=== PATIENT | male | born 1980 | race Asian ===

== ENCOUNTER 2019-08-03 10:00 | Emergency (ER) | payer BC ==
[~2019-08-03] VITALS: Ht 172.7 cm; Wt 78.0 kg
[2019-08-03] MEDS ORDERED: IPRATROPIUM/ALBUTEROL 0.5-3(2.5)MG/3ML NEB HHN ONE (12:00)
[2019-08-03] MEDS ORDERED: ALBUTEROL (0.5%) 2.5MG/0.5ML NEB HHN ONE (12:00)
[2019-08-03 13:51] VITALS: BP 142/97
== END 2019-08-03 13:53 | disposition home or self-care (01) ==
LOC: ER 10:00
DX: J10.1 Influenza due to other identified influenza virus with other respiratory manifestations (principal)
CPT/HCPCS: 71045; 87804; 99284; J7620